=== PATIENT | female | born 1945 | race Caucasian/White ===

== ENCOUNTER 2019-04-19 14:05 | Inpatient (IN) ==
[2019-04-19] MEDS ORDERED: Hyoscyamine SL 0.125 MG TAB.SUBL SL PRN (15:45)
[2019-04-19] MEDS ORDERED: Naloxone 0.4 MG/ML INJ IVP PRN (15:45)
[2019-04-19] MEDS ORDERED: *HR* Belladonna Alkaloids/Opium 30 MG RECTAL SUPPOSITORY RC PRN (15:45)
[2019-04-19] MEDS ORDERED: *HR* Promethazine 25 MG/ML VIAL IVP PRN (15:45)
[2019-04-19] MEDS ORDERED: *HR* FentaNYL (PF) 100 MCG/2 ML VIAL IVP PRN (15:54)
[2019-04-19 16:20] LABS: Basophils % 0.1 %; Hematocrit 41.8 % (35.3-44.9); Hemoglobin 13.5 g/dL (11.5-15.4); Immature Granulocytes % 0.5 % (0-4); Lymphocytes # 2.2 K/mcL (0.6-4.6); Lymphocytes % 14.6 %; Mean Corpuscular HGB Conc 32.3 g/dL (31.6-35.5); Mean Corpuscular Hemoglobin 30.8 pg (28.0-33.3); Mean Corpuscular Volume 95.4 fL (83.0-100.0); Mean Platelet Volume 9.2 fL (9.4-12.4); Monocytes # 1.4 K/mcL (0.0-1.3); Monocytes % 9.2 %; Neutrophils # 11.2 K/mcL (1.6-8.9); Platelet Count 212 K/mcL (140-400); Red Blood Count 4.38 M/mcL (3.82-4.97); Red Cell Distribution Width 12.7 % (11.5-14.5); Segmented Neutrophils % 75.6 %; White Blood Count 14.9 K/mcL (4.3-11.1)
[2019-04-19] MEDS: cefTRIAXone 1,000 MG in Water for inj. (sterile) 10 ML IVP SCH (16:34)
[2019-04-19] MEDS: 0.9 % Sodium Chloride 1,000 ML IVC SCH (16:37)
[2019-04-19 16:40] LABS: Calcium 9.4 mg/dL (8.6-10.3); Potassium 3.8 mEq/L (3.5-5.1)
--- NOTE | 2019-04-19 18:26 | Urology History & Physical ---
Date of Encounter: 04/19/19 Time of Encounter: 18:24 Assessment and Plan (1) Ureteral stone with hydronephrosis Current Visit: Yes Status: Acute Patient has an 8 mm proximal ureteral calculi seen on outside CT scan and KUB. Due to her presentation with acute renal insufficiency and acute illness I am electing to proceed with a cystoscopy, left retrograde pyelogram, left ureteral stent placement. The right-sided stone does not appear obstructing and we will observe without a ureteral stent. Will likely require outpatient ESWL versus stone extraction. (2) Atrophic kidney Current Visit: Yes Status: Acute The right kidney is atrophic. This is contributing to the acute renal i nsufficiency she has an obstructing stone in her left kidney. (3) Acute renal insufficiency Current Visit: Yes Status: Acute Will monitor. Should improve with ureteral stent placement. No critical labs at this time. History of Present Illness Chief complaint: left flank pain HPI: Ms. Driver is a 73 year old female transferred from [facility] secondary t o a proximal ureteral stone. Patient has a history of stones. States she has had significant left flank pain. Acute renal insufficiency. No fever. Intractable nausea vomiting. CT scan from [facility] reveals a 8 mm proximal left ureteral stone with moderate hydronephrosis. She has a somewhat atrophic right kidney with a nonobstructing smaller stone. Past Med Surg Social Fam HX - Past Medical History Medical history: arthritis, COPD, hypertension, kidney stones, renal disease Additional medical history: stomach ulcer Psychiatric history: depression - Past Surgical History Surgical History: appendectomy, cholecystectomy Additional surgical history: Bilateral foot surgeries-orthopedic, kidney stone removed - Social History Smoking Status: Former smoker Smokeless Tobacco Status: No Alcohol use: none Drug use: none Medications and Allergies Acetaminophen [Tylenol] 1,000 mg PO Q6HR 04/19/19 [History] Cetirizine HCl [24Hour Allergy] 10 mg PO DAILY 04/19/19 [History] Cholecalciferol (Vitamin D3) [Vitamin D3] 5,000 cap PO DAILY 04/19/19 [History] Escitalopram [Lexapro] 10 mg PO DAILY 04/19/19 [History] Fluticasone Propionate Nasal [Flonase] 50 mcg NS BID PRN 04/19/19 [History] Furosemide [Lasix] 20 mg PO DAILY 04/19/19 [History] Omeprazole [PriLOSEC] 20 mg PO DAILY 04/19/19 [History] Propranolol 10 mg PO DAILY 04/19/19 [History] traZODone [TraZODone] 50 mg PO HS 04/19/19 [History] Allergy/AdvReac Type Severity Reaction Status Date / Time acetaminophen Allergy Intermediate Gastrointestinal Verified 04/19/19 15:14 [From Excedrin Extra Upset Strength] aspirin Allergy Intermediate Gastrointestinal Verified 04/19/19 15:14 [From Excedrin Extra Upset Strength] caffeine Allergy Intermediate Gastrointestinal Verified 04/19/19 15:14 [From Excedrin Extra Upset Strength] ondansetron [From Zofran] Allergy Intermediate Itching Verified 04/19/19 15:15 Review of Systems - Constitutional fatigue, no chills, no fever(s) - EENT Nose, mouth and throat: no dizziness - Cardiovascular no chest pain - Respiratory no cough - Gastrointestinal abdominal pain, nausea, vomiting - Genitourinary Genitourinary: flank pain - Musculoskeletal back pain - Integumentary no erythema - Neurological no confusion - Psychiatric no anxiety - Hematologic/Lymphatic no easy bleeding - Allergic/Immunologic no throat swelling Exam Initial Vital Signs Temp Pulse Resp BP Pulse Ox 98.6 F 54 18 107/62 94 04/19/19 15:46 04/19/19 15:46 04/19/19 15:46 04/19/19 15:46 04/19/19 15:46 - General physical appearance Present: well developed, no distress, no pain - Eyes Present: PERRL, conjunctiva is clear - ENT Present: normal nares, no congestion - Neck Present: no masses, no lymphadenopathy - Respiratory Present: normal respiratory effort - Cardiovascular Cardiovascular exam IM: RRR - Abdomen Abdomen: Present: soft. Absent: suprapubic tenderness - Integumentary Present: no rash, no growths, no abnormal pigmentation - Neurologic Present: normal coordination. Absent: disoriented, confused - Additional Findings No extremity edema Urology Results - Labs 04/19/19 16:09 04/19/19 16:09 Abnormal lab results WBC 14.9 K/mcL (4.3-11.1) H 04/19/19 16:09 MPV 9.2 fL (9.4-12.4) L 04/19/19 16:09 11.2 K/mcL (1.6-8.9) H 04/19/19 16:09 1.4 K/mcL (0.0-1.3) H 04/19/19 16:09 BUN 26 mg/dL (8-23) H 04/19/19 16:09 2.02 mg/dL (0.60-1.20) H 04/19/19 16:09 Est GFR ( Amer) 29 (> 60) L 04/19/19 16:09 Est GFR (Non-Af Amer) 24 (> 60) L 04/19/19 16:09 Glucose 135 mg/dL (70-105) H 04/19/19 16:09 Diabetes panel 04/19/19 Range/Units 16:09 Sodium 138 (136-145) mEq/L Potassium 3.8 (3.5-5.1) mEq/L Chloride 102 (98-107) mEq/L Carbon Dioxide 29 (23-29) mEq/L BUN 26 H (8-23) mg/dL Creatinine 2.02 H (0.60-1.20) mg/dL Glucose 135 H (70-105) mg/dL Calcium 9.4 (8.6-10.3) mg/dL Calcium panel 04/19/19 Range/Units 16:09 Calcium 9.4 (8.6-10.3) mg/dL Pituitary panel 04/19/19 Range/Units 16:09 Sodium 138 (136-145) mEq/L Potassium 3.8 (3.5-5.1) mEq/L Chloride 102 (98-107) mEq/L Carbon Dioxide 29 (23-29) mEq/L BUN 26 H (8-23) mg/dL Creatinine 2.02 H (0.60-1.20) mg/dL Glucose 135 H (70-105) mg/dL Calcium 9.4 (8.6-10.3) mg/dL Adrenal panel 04/19/19 Range/Units 16:09 Sodium 138 (136-145) mEq/L Potassium 3.8 (3.5-5.1) mEq/L Chloride 102 (98-107) mEq/L Carbon Dioxide 29 (23-29) mEq/L BUN 26 H (8-23) mg/dL Creatinine 2.02 H (0.60-1.20) mg/dL Glucose 135 H (70-105) mg/dL Calcium 9.4 (8.6-10.3) mg/dL All other labs normal.
[2019-04-20] MEDS: 0.9 % Sodium Chloride 1,000 ML IVC SCH ×2 (02:59→18:57)
[2019-04-20] MEDS ORDERED: Fluticasone Propionate Nasal 50 MCG/SPRAY BOTTLE NS PRN ×2 (07:03→18:15)
--- NOTE | 2019-04-20 09:06 | Urology Progress Note ---
<Ignacia Myaer N - Last Filed: 04/20/19 09:03> Date of Encounter: 04/20/19 Time of Encounter: 08:20 - Assessment and Plan (1) Acute renal insufficiency Current Visit: Yes Status: Acute Assessment and plan: Patient is a 73-year-old female who presents with acute renal insufficiency secondary to right atrophic kidney and obstructed left kidney by ureteral calculus. Patient will undergo left ureteral stent placement and continue with IV antibiotics. We will reevaluate patient's renal function postoperatively. (2) Atrophic kidney Current Visit: Yes Status: Acute Assessment and plan: Patient is a 79-year-old female who presents with a right atrophic kidney and nonobstructive right renal stone. We will plan to treat the obstructing left ureteral stone and discuss further management of atrophic kidney at outpatient follow-up. (3) Ureteral stone with hydronephrosis Current Visit: Yes Status: Acute Assessment and plan: Patient is a 73-year-old female who presents with an 8 mm left proximal ureteral stone, moderate hydronephrosis and urinary tract infection. Vital signs are currently stable, febrile to 100.0, and BP is 90/53. Patient is resting comfortably in no apparent distress. White blood cell count is elevated to 14.9. Patient is receiving IV Rocephin. We discussed surgical risks and benefits, patient verbalized understanding, and she signed a surgical consent. Patient will remain nothing by mouth, and she is prepared undergo a cystoscopy, left retrograde pyelogram and left ureteral stent placement later today with Dr. Pimentel. Progress Note Subjective: no new complaints Narrative: Patient seen and examined sitting upright in bed in no apparent distress. Patient reports pain is well-controlled at present. Patient reports she is voiding without difficulty. Patient denies any fever or chills. Objective Initial Vital Signs Temp Pulse Resp BP Pulse Ox 98.6 F 54 18 107/62 94 04/19/19 15:46 04/19/19 15:46 04/19/19 15:46 04/19/19 15:46 04/19/19 15:46 - General physical appearance Present: no distress, no pain - Respiratory Present: normal expansion, normal respiratory effort - Abdomen Present: soft, non tender. Absent: distended - Integumentary Present: no rash, no abnormal pigmentation - Musculoskeletal Present: normal posture - Psychiatric Present: oriented to time, oriented to person, oriented to place, speech is normal, memory intact - Labs 04/19/19 16:09 04/19/19 16:09 Diabetes panel 04/19/19 Range/Units 16:09 Sodium 138 (136-145) mEq/L Potassium 3.8 (3.5-5.1) mEq/L Chloride 102 (98-107) mEq/L Carbon Dioxide 29 (23-29) mEq/L BUN 26 H (8-23) mg/dL Creatinine 2.02 H (0.60-1.20) mg/dL Glucose 135 H (70-105) mg/dL Calcium 9.4 (8.6-10.3) mg/dL Calcium panel 04/19/19 Range/Units 16:09 Calcium 9.4 (8.6-10.3) mg/dL Pituitary panel 04/19/19 Range/Units 16:09 Sodium 138 (136-145) mEq/L Potassium 3.8 (3.5-5.1) mEq/L Chloride 102 (98-107) mEq/L Carbon Dioxide 29 (23-29) mEq/L BUN 26 H (8-23) mg/dL Creatinine 2.02 H (0.60-1.20) mg/dL Glucose 135 H (70-105) mg/dL Calcium 9.4 (8.6-10.3) mg/dL Adrenal panel 04/19/19 Range/Units 16:09 Sodium 138 (136-145) mEq/L Potassium 3.8 (3.5-5.1) mEq/L Chloride 102 (98-107) mEq/L Carbon Dioxide 29 (23-29) mEq/L BUN 26 H (8-23) mg/dL Creatinine 2.02 H (0.60-1.20) mg/dL Glucose 135 H (70-105) mg/dL Calcium 9.4 (8.6-10.3) mg/dL Consult Discharge Plan - Plan Referrals: Natasha Samuel, DIESEL POWERPLANT SUPERVISOR [Primary Care Provider] - <Caleb Pimentel - Last Filed: 04/22/19 06:34> Date of Encounter: 04/22/19 - Assessment and Plan (1) Ureteral stone with hydronephrosis Current Visit: Yes Status: Acute Assessment and plan: Patient seen and examined in conjunction with physician circulation assistant. Agree with plan to proceed with surgical intervention. (2) Atrophic kidney Current Visit: Yes Status: Chronic (3) Acute renal insufficiency Current Visit: Yes Status: Acute Objective Initial Vital Signs Temp Pulse Resp BP Pulse Ox 98.6 F 54 18 107/62 94 04/19/19 15:46 04/19/19 15:46 04/19/19 15:46 04/19/19 15:46 04/19/19 15:46 - Labs 04/22/19 02:56 04/22/19 02:56 Diabetes panel 04/21/19 04/22/19 Range/Units 07:02 02:56 Sodium 134 L 137 (136-145) mEq/L Potassium 4.0 4.2 (3.5-5.1) mEq/L Chloride 102 106 (98-107) mEq/L Carbon Dioxide 22 L 21 L (23-29) mEq/L BUN 39 H 42 H (8-23) mg/dL Creatinine 2.50 H 1.91 H (0.60-1.20) mg/dL Glucose 149 H 146 H (70-105) mg/dL Calcium 8.7 8.6 (8.6-10.3) mg/dL AST 36 (13-39) Units/L ALT 11 (7-52) Units/L Alkaline Phosphatase 88 (34-104) Units/L Albumin 3.2 L 2.9 L (3.5-5.7) g/dL Calcium panel 04/21/19 04/22/19 Range/Units 07:02 02:56 Calcium 8.7 8.6 (8.6-10.3) mg/dL Phosphorus 2.9 (2.7-4.5) mg/dL Albumin 3.2 L 2.9 L (3.5-5.7) g/dL Pituitary panel 04/21/19 04/22/19 Range/Units 07:02 02:56 Sodium 134 L 137 (136-145) mEq/L Potassium 4.0 4.2 (3.5-5.1) mEq/L Chloride 102 106 (98-107) mEq/L Carbon Dioxide 22 L 21 L (23-29) mEq/L BUN 39 H 42 H (8-23) mg/dL Creatinine 2.50 H 1.91 H (0.60-1.20) mg/dL Glucose 149 H 146 H (70-105) mg/dL Calcium 8.7 8.6 (8.6-10.3) mg/dL Adrenal panel 04/21/19 04/22/19 Range/Units 07:02 02:56 Sodium 134 L 137 (136-145) mEq/L Potassium 4.0 4.2 (3.5-5.1) mEq/L Chloride 102 106 (98-107) mEq/L Carbon Dioxide 22 L 21 L (23-29) mEq/L BUN 39 H 42 H (8-23) mg/dL Creatinine 2.50 H 1.91 H (0.60-1.20) mg/dL Glucose 149 H 146 H (70-105) mg/dL Calcium 8.7 8.6 (8.6-10.3) mg/dL Total Bilirubin 0.6 (0.3-1.0) mg/dL AST 36 (13-39) Units/L ALT 11 (7-52) Units/L Alkaline Phosphatase 88 (34-104) Units/L Albumin 3.2 L 2.9 L (3.5-5.7) g/dL
[2019-04-20] MEDS ORDERED: Isovue-300 50 ML VIAL ONE (15:30)
--- NOTE | 2019-04-20 15:38 | Anesthesia Evaluation PreOp ---
Date of Encounter: 04/20/19 Time of Encounter: 15:34 - Past History Planned Operation: Cystoscopy, Left Ureteral Stent Placement Cardiac History: HTN Pulmonary History: Former smoker, COPD MIMEOGRAPH OPERATOR History: Denies Any Significant HX Other Medical History: Renal (kidney stones, renal insufficiency), GERD, Other (depression) Anesthesia History: No Prior Anesthetic Complications, Past Anesthesia Alcohol Use: none Drug use: none Medications and Allergies Acetaminophen [Tylenol] 1,000 mg PO Q6HR PRN 04/19/19 [History] Cetirizine HCl [24Hour Allergy] 10 mg PO DAILY PRN 04/19/19 [History] Escitalopram [Lexapro] 10 mg PO DAILY 04/19/19 [History] Omeprazole [PriLOSEC] 20 mg PO DAILY 04/19/19 [History] Propranolol [Inderal] 10 mg PO BID 04/19/19 [History] traZODone [TraZODone] 50 mg PO HS 04/19/19 [History] Cholecalciferol (Vitamin D3) [Vitamin D] 5,000 unit PO DAILY 04/20/19 [History] Furosemide [Lasix] 40 mg PO DAILY 04/20/19 [History] Allergy/AdvReac Type Severity Reaction Status Date / Time acetaminophen Allergy Intermediate Gastrointestinal Verified 04/20/19 07:44 [From Excedrin Extra Upset Strength] aspirin Allergy Intermediate Gastrointestinal Verified 04/20/19 07:44 [From Excedrin Extra Upset Strength] caffeine Allergy Intermediate Gastrointestinal Verified 04/20/19 07:44 [From Excedrin Extra Upset Strength] ondansetron [From Zofran] Allergy Intermediate Itching Verified 04/20/19 07:44 - Meds/Allergy Pre-op Review Medications Reviewed: Yes Allergies Reviewed: Yes Beta Blockers on Current Med List: Yes Anesthesia Results - Labs 04/19/19 16:09 04/19/19 16:09 - Imaging EKG: report reviewed (04/20/2019 sinus rhythm, low QRS voltage in precordial leads, IRBBB) Anesthesia Exam Vital Signs/O2 Sat/Glucose, Most Recent Temp Pulse Resp BP Pulse Ox 99.5 F 90 13 96/62 95 04/20/19 12:40 04/20/19 12:40 04/20/19 12:40 04/20/19 12:40 04/20/19 12:40 Blood Glucose* 100 Height: 5'3'/1.6m Weight: 192 lbs/87 kg NPO (# of Hours): 8 Pain Scale: 0 Pain Scale Used: Numeric (1 - 10) - HEENT Pupil (Motor): EOMI Mallampati: II Teeth: Edentulous Oral Opening: Greater than 3 - MIMEOGRAPH OPERATOR LOC: Oriented MIMEOGRAPH OPERATOR Motor: Normal RUE, Normal LUE, Normal RLE, Normal LLE, Normal Face MIMEOGRAPH OPERATOR Sensory: Normal: RUE, LUE, RLE, LLE, Face - Cardiac Rhythm: Regular Murmur: None - Pulmonary Breath Sounds: bilateral Clear Respiratory Effort: Symmetrical Anesthesia Assess/Plan ASA Score: 3 Level of consciousness: Cooperative, Oriented, Tranquil Anesthetic Plan: General Monitoring Plan: Standard Monitors Recovery Plan: PACU
[2019-04-20] MEDS ORDERED: *HR* FentaNYL (PF) 100 MCG/2 ML VIAL ONE (16:36)
[2019-04-20] MEDS ORDERED: *HR* Propofol 200 MG/20 ML VIAL IVP ONE (16:37)
[2019-04-20] MEDS ORDERED: Ondansetron 4 MG/2 ML VIAL ONE (16:37)
[2019-04-20] MEDS ORDERED: Dexamethasone 4 MG/ML VIAL ONE (16:37)
[2019-04-20] MEDS ORDERED: Lidocaine -MPF 2% 2 ML VIAL ONE (16:37)
[2019-04-20] MEDS ORDERED: Morphine Sulfate 2 MG/ML SYRINGE IVP PRN (16:41)
[2019-04-20] MEDS: cefTRIAXone 1,000 MG in Water for inj. (sterile) 10 ML IVP SCH (16:45)
[2019-04-20] MEDS ORDERED: *HR* PHENYLEPHRINE 1,000 MCG/10 ML SYRINGE IVP ONE (16:58)
--- NOTE | 2019-04-20 17:40 | Anesthesia Evaluation Post Op ---
Date of Encounter: 04/20/19 Time of Encounter: 17:39 - Vital Signs Vital Signs: Vital Signs/O2 Sat, Most Current Temp Pulse Resp BP Pulse Ox 97.1 F L 77 16 98/52 97 04/20/19 17:17 04/20/19 17:27 04/20/19 17:27 04/20/19 17:27 04/20/19 17:27 - Lungs Lungs: Clear Ascult./Percussion - Airway Airway: Non-obstructed - Cardiovascular Regular Rate - Mental Status Mental Status: Alert & Oriented, Answers Appropriately - Pain Pain Scale: 0 Pain Scale used: Numeric (1 - 10) - Nausea Vomiting Nausea Vomiting: Not Present - Hydration Hydration: Ice chips, Delatorre catheter - Discharge PostOp Status: Transfer Patient to floor
--- NOTE | 2019-04-20 17:40 | Operative Note ---
Date of procedure: 04/20/19 Pre-op diagnosis: left ureteral stone with hydronephrosis Post-op diagnosis: same Procedure: cystoscopy with left retrograde pyelogram and JJ stent placement Anesthesia: GETA Surgeon: Caleb Pimentel Was there an food and beverage assistant present: No Estimated blood loss (cc): 0 Specimen: none Condition: stable Disposition: PACU Procedure in Detail: PROCEDURE IN DETAIL: Patient was taken back to the operating room, positioned supine on the operating table. Anesthesia was applied without complication. They were moved into dorsal lithotomy. Careful attention was maintained to cushion all pressure points for patient's safety. They were prepped and draped in sterile fashion. Time-out was performed with the proper patient and procedure. A 21-Mexican rigid cystoscope was inserted into the bladder without difficulty. Systematic examination of bladder revealed significant cystitis cystica. The left ureteral orifice was cannulated using a 5-Mexican ureteral Catheter and a retrograde pyelogram was performed using Isovue. A filling defect was identified which corresponded to the stone. At that point, a zip wire was placed through the 5-Mexican and confirmed in the renal pelvis with fluoroscopy. I then placed a 4.8 x 26 ureteral stent. There was significant opaque. Fluid drained from the left ureteral orifice. No dangle string was left. 16-Mexican Delatorre catheter was placed at the end of the procedure
[2019-04-20] MEDS ORDERED: Hyoscyamine SL 0.125 MG TAB.SUBL SL PRN (18:15)
[2019-04-20] MEDS ORDERED: *HR* FentaNYL (PF) 100 MCG/2 ML VIAL IVP PRN (18:15)
[2019-04-20] MEDS ORDERED: Naloxone 0.4 MG/ML INJ IVP PRN (18:15)
[2019-04-20] MEDS ORDERED: *HR* Promethazine 25 MG/ML VIAL IVP PRN (18:15)
[2019-04-20] MEDS ORDERED: *HR* Belladonna Alkaloids/Opium 30 MG RECTAL SUPPOSITORY RC PRN (18:15)
[2019-04-20] MEDS: traZODone 50 MG TABLET PO SCH (20:50)
[2019-04-20] MEDS ORDERED: traZODone 50 MG TABLET PO SCH (21:00)
--- NOTE | 2019-04-21 03:14 | Internal Medicine Consult Note ---
Date of Encounter: 04/20/19 Time of Encounter: 21:05 - Assessment and Plan (1) Acute renal insufficiency Current Visit: Yes Status: Acute Assessment and plan: 1. Monitor renal function and I/O. 2. Consult nephrology, especially given her CKD and h/o atrophic right kidney. 3. Continue IVF. (2) Atrophic kidney Current Visit: Yes Status: Chronic Assessment and plan: 1. Patient needs long-term outpatient nephrology follow up. (3) Ureteral stone with hydronephrosis Current Visit: Yes Status: Acute Assessment and plan: 1. Per urology. 2. Care as above. (4) DVT prophylaxis Current Visit: Yes Status: Acute Assessment and plan: 1. EPCD's. Internal Medicine - CN: HPI - Data of Consult Requesting Physician: Caleb Pimentel - Consult Narrative Reason for consult: medical management/assistance History of present illness: Ms. Driver is a 73 year old female who was status post intervention and stent placement for obstructing renal lithiasis. [facility] hospitalist group was consulted for help with medical management as was reported to me from my daytime admitting partner. Dr. Pimentel contacted her requesting assistance from hospitalist group for ongoing care and needs. Upon my assessment of the patient, she is sitting in bed eating dinner and has no complaints. She is very hard of hearing but communicates very well otherwise. She denies any chest pain, shortness of breath, nausea, vomiting, or diarrhea. She has minimal dysuria now. I reviewed her history and note that she has an atrophic right kidney and appears to have chronic kidney disease. She does not follow with nephrology and has not seen a tip bander since childhood. She denies any difficulty breathing, COPD, and/or cardiac issues. Given her history of atrophic right kidney, chronic kidney disease, and now with obstructive uropathy of the left kidney, I recommend close follow-up with nephrology and establishment with nephrology. I am therefore taking liberty in consulting nephrology as she will likely need close follow-up in the near future. Past Med Surg Social Fam HX - Past Medical History Attestation: Yes The following information was validated with the patient. Source: patient, old records reviewed Medical history: arthritis, COPD, hypertension, kidney stones, renal disease (a trophic right kidney/CKD) Additional medical history: stomach ulcer Psychiatric history: depression - Past Surgical History Surgical History: appendectomy, cholecystectomy Additional surgical history: Bilateral foot surgeries-orthopedic, kidney stone removed - Social History Smoking Status: Former smoker Smokeless Tobacco Status: No Alcohol use: none Drug use: none Current living situation: Home, With Family Activity Level: Independent ambulation Recent Out of Country Travel Within the Last 8 Weeks: No - Additional Family History Additional family history: No FH kidney disease per patient - Constitutional Constitutional: chills, fever(s), no night sweats - EENT Eyes: no blurry vision, no change in vision Ears: no ear pain, no tinnitus Nose, mouth and throat: no nasal congestion, no sore throat - Cardiovascular Cardiovascular ROS IM: no chest pain, no dyspnea - Respiratory Respiratory: no cough, no dyspnea, no chest congestion - Gastrointestinal Gastrointestinal: no diarrhea, no hematemesis, no hematochezia, no nausea, no vomiting - Genitourinary Genitourinary: dysuria, flank pain - Musculoskeletal Musculoskeletal ROS IM: no arthralgias, no back pain - Integumentary Integumentary IM: no rash - Neurological Neurological ROS: no dizziness, no focal weakness, no frequent falls, no headache(s) - Psychiatric Psychiatric: no anxiety, no depression - Endocrine Endocrine IM: no polydipsia, no polyuria - Hematologic/Lymphatic Hematologic/Lymphatic: no easy bruising - Allergic/Immunologic Allergic/Immunologic: no wheezing Internal Medicine - CN: Meds Acetaminophen [Tylenol] 1,000 mg PO Q6HR PRN 04/19/19 [History] Cetirizine HCl [24Hour Allergy] 10 mg PO DAILY PRN 04/19/19 [History] Escitalopram [Lexapro] 10 mg PO DAILY 04/19/19 [History] Omeprazole [PriLOSEC] 20 mg PO DAILY 04/19/19 [History] Propranolol [Inderal] 10 mg PO BID 04/19/19 [History] traZODone [TraZODone] 50 mg PO HS 04/19/19 [History] Cholecalciferol (Vitamin D3) [Vitamin D] 5,000 unit PO DAILY 04/20/19 [History] Furosemide [Lasix] 40 mg PO DAILY 04/20/19 [History] Allergy/AdvReac Type Severity Reaction Status Date / Time acetaminophen Allergy Intermediate Gastrointestinal Verified 04/20/19 07:44 [From Excedrin Extra Upset Strength] aspirin Allergy Intermediate Gastrointestinal Verified 04/20/19 07:44 [From Excedrin Extra Upset Strength] caffeine Allergy Intermediate Gastrointestinal Verified 04/20/19 07:44 [From Excedrin Extra Upset Strength] ondansetron [From Zofran] Allergy Intermediate Itching Verified 04/20/19 07:44 Hospitalist - CN: Exam - Constitutional Vitals: Temp Pulse Resp BP Pulse Ox 98.1 F 55 14 91/55 93 04/20/19 23:50 04/20/19 23:50 04/20/19 23:50 04/20/19 23:50 04/20/19 23:50 General appearance IM: Present: cooperative, A&O X 3, pleasant, answers qu estions appropriately Exam: hard of hearing - Head Head exam: Present: atraumatic, normal inspection - Eye Eye exam: Present: EOMI, PERRL. Absent: scleral icterus - ENT ENT exam: Present: normal exam - Neck Neck exam general surgery: Present: full ROM, supple, trachea midline. Absent: tenderness, nuchal rigidity, thyromegaly - Respiratory Respiratory exam: Present: CTAB. Absent: chest wall tenderness, rales, rhonchi, wheezes - Cardiovascular Cardiovascular exam IM: Present: RRR, +S1, +S2. Absent: diastolic murmur, systolic murmur - GI/Abdominal GI/Abdominal exam IM: Present: normal bowel sounds, soft. Absent: hepatomegaly, mass, splenomegaly, tenderness - Extremities Exam Extremities exam IM: Present: full ROM, normal capillary refill, warm, radial pulses palpable and symmetrical. Absent: calf tenderness, joint swelling, pedal edema, tenderness - Back Exam Back exam: Absent: CVA tenderness (L), CVA tenderness (R) - Neurological Exam Neurological exam: Present: alert, CN II-XII intact, oriented X3, no focal deficits, strengths equal and symetr throughout - Psychiatric Psychiatric exam: Present: normal affect, normal mood - Skin Skin exam IM: Present: dry, intact, warm Internal Medicine - CN: Reslt - Labs CBC & Chem 7: 04/19/19 16:09 04/19/19 16:09 - Impressions Impressions Retrograde Pyelogram 04/20/19 16:55 IMPRESSION: Intraprocedural fluoroscopic spot images as above. See separate procedure report for more information. D/ / 04/20/2019 17:36:12 Myron Caballero MD / earnold Interpreting Provider: Myron Caballero MD Consult Discharge Plan - Plan Referrals: Natasha Samuel, SCREEN TENDER [Primary Care Provider] -
[2019-04-21] MEDS: 0.9 % Sodium Chloride 1,000 ML IVC SCH ×3 (04:44→16:14)
[2019-04-21 08:03] LABS: Basophils % 0.1 %; Hematocrit 37.8 % (35.3-44.9); Hemoglobin 12.1 g/dL (11.5-15.4); Immature Granulocytes % 1.1 % (0-4); Lymphocytes # 1.3 K/mcL (0.6-4.6); Mean Corpuscular Hemoglobin 30.6 pg (28.0-33.3); Mean Corpuscular Volume 95.7 fL (83.0-100.0); Mean Platelet Volume 9.5 fL (9.4-12.4); Monocytes # 0.4 K/mcL (0.0-1.3); Monocytes % 3.8 %; Neutrophils # 8.5 K/mcL (1.6-8.9); Platelet Count 171 K/mcL (140-400); Red Blood Count 3.95 M/mcL (3.82-4.97); Red Cell Distribution Width 13.1 % (11.5-14.5); White Blood Count 10.3 K/mcL (4.3-11.1)
[2019-04-21 08:16] LABS: Albumin 3.2 g/dL (3.5-5.7); Bilirubin,Total 0.6 mg/dL (0.3-1.0); Calcium 8.7 mg/dL (8.6-10.3); Globulin 3.1 g/dL (2.4-3.5); Total Protein 6.3 g/dL (6.4-8.9)
--- NOTE | 2019-04-21 08:25 | Urology Progress Note ---
<Ignacia Mayer N - Last Filed: 04/21/19 08:22> Date of Encounter: 04/21/19 Time of Encounter: 08:00 - Assessment and Plan (1) Acute renal insufficiency Current Visit: Yes Status: Acute (2) Atrophic kidney Current Visit: Yes Status: Chronic (3) Ureteral stone with hydronephrosis Current Visit: Yes Status: Acute Assessment and plan: Patient is a 79-year-old female who presents one day status post cystoscopy, left retropyelogram and left ureteral stent placement. Patient appears to be improved clinically. Vital signs are stable and afebrile. White blood cell count improved to 10.3. Renal function slightly worsened with a serum creatinine of 2.50. Nephrology has been consulted, and renal ultrasound is pending. Urine culture is pending, and patient is receiving IV Rocephin. Plan to continue to follow until culture results are finalized. Will d/c justin catheter once patient regains mobility and renal function improves. Progress Note Subjective: no new complaints, feels better Narrative: POD #1. Patient seen and examined sitting upright in bed in apparent distress. Patient reports she is tolerating normal diet without nausea or vomiting. Patient states she is feeling much better and has been up and out of bed this morning. Justin catheter is indwelling and draining transparent, clear yellow urine into bedside bag. Patient denies fever, chills, flank pain, chest pain or dyspnea. Objective Initial Vital Signs Temp Pulse Resp BP Pulse Ox 98.6 F 54 18 107/62 94 04/19/19 15:46 04/19/19 15:46 04/19/19 15:46 04/19/19 15:46 04/19/19 15:46 - General physical appearance Present: well developed, no distress, no pain - Respiratory Present: normal expansion, normal respiratory effort - Abdomen Present: soft, non tender. Absent: distended - Genitourinary Urine Appearance: Present: Clear - Integumentary Present: no rash, no abnormal pigmentation - Musculoskeletal Present: normal posture - Psychiatric Present: oriented to time, oriented to person, oriented to place, speech is normal, memory intact - Labs 04/21/19 07:02 04/21/19 07:02 Diabetes panel 04/21/19 Range/Units 07:02 Sodium 134 L (136-145) mEq/L Potassium 4.0 (3.5-5.1) mEq/L Chloride 102 (98-107) mEq/L Carbon Dioxide 22 L (23-29) mEq/L BUN 39 H (8-23) mg/dL Creatinine 2.50 H (0.60-1.20) mg/dL Glucose 149 H (70-105) mg/dL Calcium 8.7 (8.6-10.3) mg/dL AST 36 (13-39) Units/L ALT 11 (7-52) Units/L Alkaline Phosphatase 88 (34-104) Units/L Albumin 3.2 L (3.5-5.7) g/dL Calcium panel 04/21/19 Range/Units 07:02 Calcium 8.7 (8.6-10.3) mg/dL Albumin 3.2 L (3.5-5.7) g/dL Pituitary panel 04/21/19 Range/Units 07:02 Sodium 134 L (136-145) mEq/L Potassium 4.0 (3.5-5.1) mEq/L Chloride 102 (98-107) mEq/L Carbon Dioxide 22 L (23-29) mEq/L BUN 39 H (8-23) mg/dL Creatinine 2.50 H (0.60-1.20) mg/dL Glucose 149 H (70-105) mg/dL Calcium 8.7 (8.6-10.3) mg/dL Adrenal panel 04/21/19 Range/Units 07:02 Sodium 134 L (136-145) mEq/L Potassium 4.0 (3.5-5.1) mEq/L Chloride 102 (98-107) mEq/L Carbon Dioxide 22 L (23-29) mEq/L BUN 39 H (8-23) mg/dL Creatinine 2.50 H (0.60-1.20) mg/dL Glucose 149 H (70-105) mg/dL Calcium 8.7 (8.6-10.3) mg/dL Total Bilirubin 0.6 (0.3-1.0) mg/dL AST 36 (13-39) Units/L ALT 11 (7-52) Units/L Alkaline Phosphatase 88 (34-104) Units/L Albumin 3.2 L (3.5-5.7) g/dL Consult Discharge Plan - Plan Referrals: Natasha Samuel, STEEL TURNER [Primary Care Provider] - <Caleb Pimentel - Last Filed: 04/22/19 06:33> Date of Encounter: 04/22/19 - Assessment and Plan (1) Ureteral stone with hydronephrosis Current Visit: Yes Status: Acute Assessment and plan: Patient seen and examined in conjunction with physician speech language pathologist assistant. Patient feels better after stent placement. Creatinine has increased from 2-2.5. Nephrology consult pending. Continue Justin catheter for now. Outside urine culture reveals enterococcus and antibiotics changed to renal dosed Levaquin (2) Atrophic kidney Current Visit: Yes Status: Chronic (3) Acute renal insufficiency Current Visit: Yes Status: Acute Objective Initial Vital Signs Temp Pulse Resp BP Pulse Ox 98.6 F 54 18 107/62 94 04/19/19 15:46 04/19/19 15:46 04/19/19 15:46 04/19/19 15:46 04/19/19 15:46 - Labs 04/22/19 02:56 04/22/19 02:56 Diabetes panel 04/21/19 04/22/19 Range/Units 07:02 02:56 Sodium 134 L 137 (136-145) mEq/L Potassium 4.0 4.2 (3.5-5.1) mEq/L Chloride 102 106 (98-107) mEq/L Carbon Dioxide 22 L 21 L (23-29) mEq/L BUN 39 H 42 H (8-23) mg/dL Creatinine 2.50 H 1.91 H (0.60-1.20) mg/dL Glucose 149 H 146 H (70-105) mg/dL Calcium 8.7 8.6 (8.6-10.3) mg/dL AST 36 (13-39) Units/L ALT 11 (7-52) Units/L Alkaline Phosphatase 88 (34-104) Units/L Albumin 3.2 L 2.9 L (3.5-5.7) g/dL Calcium panel 04/21/19 04/22/19 Range/Units 07:02 02:56 Calcium 8.7 8.6 (8.6-10.3) mg/dL Phosphorus 2.9 (2.7-4.5) mg/dL Albumin 3.2 L 2.9 L (3.5-5.7) g/dL Pituitary panel 04/21/19 04/22/19 Range/Units 07:02 02:56 Sodium 134 L 137 (136-145) mEq/L Potassium 4.0 4.2 (3.5-5.1) mEq/L Chloride 102 106 (98-107) mEq/L Carbon Dioxide 22 L 21 L (23-29) mEq/L BUN 39 H 42 H (8-23) mg/dL Creatinine 2.50 H 1.91 H (0.60-1.20) mg/dL Glucose 149 H 146 H (70-105) mg/dL Calcium 8.7 8.6 (8.6-10.3) mg/dL Adrenal panel 04/21/19 04/22/19 Range/Units 07:02 02:56 Sodium 134 L 137 (136-145) mEq/L Potassium 4.0 4.2 (3.5-5.1) mEq/L Chloride 102 106 (98-107) mEq/L Carbon Dioxide 22 L 21 L (23-29) mEq/L BUN 39 H 42 H (8-23) mg/dL Creatinine 2.50 H 1.91 H (0.60-1.20) mg/dL Glucose 149 H 146 H (70-105) mg/dL Calcium 8.7 8.6 (8.6-10.3) mg/dL Total Bilirubin 0.6 (0.3-1.0) mg/dL AST 36 (13-39) Units/L ALT 11 (7-52) Units/L Alkaline Phosphatase 88 (34-104) Units/L Albumin 3.2 L 2.9 L (3.5-5.7) g/dL
--- NOTE | 2019-04-21 14:55 | Internal Med Progress Note ---
Hospitalist Progress Note - Encounter Date of Encounter: 04/21/19 Time of Encounter: 14:53 - Subjective Interval History: Pt denies fever, chills, N/V or diarrhea. She denies chest pain or SOB. She denies abdominal pain. - Exam Vitals: Temp Pulse Resp BP Pulse Ox 97.6 F 50 17 91/61 95 04/21/19 08:03 04/21/19 08:03 04/21/19 08:03 04/21/19 08:03 04/21/19 08:03 Exam: General appearance IM: Present: cooperative, A&O X 3, pleasant, answers questions appropriately Exam: hard of hearing Head exam: Present: atraumatic, normal inspection Eye exam: Present: EOMI, PERRL. Absent: scleral icterus ENT exam: Present: normal exam Neck exam general surgery: Present: full ROM, supple, trachea midline. Absent: tenderness, nuchal rigidity, thyromegaly Respiratory exam: Present: CTAB. Absent: chest wall tenderness, rales, rhonchi, wheezes Cardiovascular exam IM: Present: RRR, +S1, +S2. Absent: diastolic murmur, systolic murmur GI/Abdominal exam IM: Present: normal bowel sounds, soft. Absent: hepatomegaly, mass, splenomegaly, tenderness Extremities exam IM: Present: full ROM, normal capillary refill, warm, radial pulses palpable and symmetrical. Absent: calf tenderness, joint swelling, pedal edema, tenderness Back exam: Absent: CVA tenderness (L), CVA tenderness (R) Neurological exam: Present: alert, CN II-XII intact, oriented X3, no focal deficits, strengths equal and symetr throughout Psychiatric exam: Present: normal affect, normal mood Skin exam IM: Present: dry, intact, warm - Assessment and Plan (1) Ureteral stone with hydronephrosis Current Visit: Yes Status: Acute Assessment and Plan: 1. Per urology. s/p stent placement 04/20/19 2. Care as above. (2) Atrophic kidney Current Visit: Yes Status: Chronic Assessment and Plan: Due to bump in renal function today, nephrology consulted for assistance. Patient needs long-term outpatient nephrology follow up. (3) Acute renal insufficiency Current Visit: Yes Status: Acute Assessment and Plan: 1. Monitoring renal function and I/O. 2. Consulted nephrology, especially given her CKD and h/o atrophic right kidney. 3. On IVF @ 100 ml/hr. DVT Prophylaxis: EPCD's. - Summary of Assessment and Plan Summary of Assessment and Plan: History of present illness: Dr. Yen Ms. Driver is a 73 year old female who was status post intervention and stent placement for obstructing renal lithiasis. [place] hospitalist group was consulted for help with medical management as was reported to me from my daytime admitting partner. Dr. Pimentel contacted her requesting assistance from hospitalist group for ongoing care and needs. Upon my assessment of the patient, she is sitting in bed eating dinner and has no complaints. She is very hard of hearing but communicates very well otherwise. She denies any chest pain, shortness of breath, nausea, vomiting, or diarrhea. She has minimal dysuria now. I reviewed her history and note that she has an atrophic right kidney and appears to have chronic kidney disease. She does not follow with nephrology and has not seen a car dumper since childhood. She denies any difficulty breathing, COPD, and/or cardiac issues. Given her history of atrophic right kidney, chronic kidney disease, and now with obstructive uropathy of the left kidney, I recommend close follow-up with nephrology and establishment with nephrology. I am therefore taking liberty in consulting nephrology as she will likely need close follow-up in the near future. - Time Spent with Patient Total time spent is greater than 50% in coordination of care (as documented) at patient's floor/unit and/or counseling patient: less than 15 minutes Plan of Care Discussed with: patient Internal Medicine: Result - Labs CBC & Chem 7: 04/21/19 07:02 04/21/19 07:02 Labs: Short CBC 04/21/19 Range/Units 07:02 WBC 10.3 (4.3-11.1) K/mcL Hgb 12.1 (11.5-15.4) g/dL Hct 37.8 (35.3-44.9) % Plt Count 171 (140-400) K/mcL Neutrophils # 8.5 (1.6-8.9) K/mcL BMP 04/21/19 07:02 Sodium 134 L Potassium 4.0 Chloride 102 Carbon Dioxide 22 L BUN 39 H Creatinine 2.50 H Glucose 149 H Calcium 8.7 Liver Function 04/21/19 Range/Units 07:02 Total Bilirubin 0.6 (0.3-1.0) mg/dL AST 36 (13-39) Units/L ALT 11 (7-52) Units/L Alkaline Phosphatase 88 (34-104) Units/L Albumin 3.2 L (3.5-5.7) g/dL - Impressions Impressions Retrograde Pyelogram 04/20/19 16:55 IMPRESSION: Intraprocedural fluoroscopic spot images as above. See separate procedure report for more information. D/ / 04/20/2019 17:36:12 Myron Caballero MD / ame Interpreting Provider: Myron Caballero MD Consult Discharge Plan - Plan Referrals: Natasha Samuel, PIPE CREW FOREMAN [Primary Care Provider] -
[2019-04-21] MEDS ORDERED: levoFLOXacin 500 MG/100 ML 500 MG/100 ML BAG IVPB SCH (15:00)
--- NOTE | 2019-04-21 16:03 | Electrocardiograph Report ---
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
[2019-04-21] MEDS ORDERED: cefTRIAXone 1,000 MG in Water for inj. (sterile) 10 ML IVP SCH (17:00)
--- NOTE | 2019-04-21 19:45 | Nephrology Consult Note ---
Date of Encounter: 04/21/19 Time of Encounter: 14:00 Assessment and Plan (1) KARLI (acute kidney injury) Current Visit: Yes Status: Acute Elevated SCr in the setting obstruction L kidney with ureteral stone s/p stent and an atrophic R kidney, likely sepsis Agree with abx per primary Agree with US of rc diggs ordered Continue IVF already started Avoid nephrotoxins if possible Will check urine studies (2) Ureteral stone with hydronephrosis Current Visit: Yes Status: Acute Per urology (3) Atrophic kidney Current Visit: Yes Status: Chronic (4) Stage 3 chronic kidney disease Current Visit: Yes Status: Acute Will check PTH, Vitamin D levels Will check urine for proteinuria Will check SPEP and UPEP Will check VIN and complements History of Present Illness - Reason for Consult Consult date: 04/21/19 Acute Kidney Injury Requesting physician: Donita Maza - History of Present Illness 73 y o female with PMH of HTN, OA, COPd transferred from [facility] she presented with L flank pain with CT and KUB showing 8mm prox. ureteral stone on lfet kidney with R kidney noted atrophic. Pt underwent cystoscopy with retrog rade pyelogram and left ureteral stent placement yesterday. Renal consulted for elevated SCr worse today at 2.5 from 2.02. Baseline SCr around 1.4 to 1.7. Pt reports any episode of KARLI in the past but denies chronic issue and does not follow with nephrology. Past Med Surg Social Fam HX - Past Medical History Medical history: arthritis, COPD, hypertension, kidney stones, renal disease (atrophic right kidney/CKD) Additional medical history: stomach ulcer Psychiatric history: depression - Past Surgical History Surgical History: appendectomy, cholecystectomy Additional surgical history: Bilateral foot surgeries-orthopedic, kidney stone removed - Social History Smoking Status: Former smoker Smokeless Tobacco Status: No Alcohol use: none Drug use: none Medications and Allergies Acetaminophen [Tylenol] 1,000 mg PO Q6HR PRN 04/19/19 [History] Cetirizine HCl [24Hour Allergy] 10 mg PO DAILY PRN 04/19/19 [History] Escitalopram [Lexapro] 10 mg PO DAILY 04/19/19 [History] Omeprazole [PriLOSEC] 20 mg PO DAILY 04/19/19 [History] Propranolol [Inderal] 10 mg PO BID 04/19/19 [History] traZODone [TraZODone] 50 mg PO HS 04/19/19 [History] Cholecalciferol (Vitamin D3) [Vitamin D] 5,000 unit PO DAILY 04/20/19 [History] Furosemide [Lasix] 40 mg PO DAILY 04/20/19 [History] Allergy/AdvReac Type Severity Reaction Status Date / Time acetaminophen Allergy Intermediate Gastrointestinal Verified 04/20/19 07:44 [From Excedrin Extra Upset Strength] aspirin Allergy Intermediate Gastrointestinal Verified 04/20/19 07:44 [From Excedrin Extra Upset Strength] caffeine Allergy Intermediate Gastrointestinal Verified 04/20/19 07:44 [From Excedrin Extra Upset Strength] ondansetron [From Zofran] Allergy Intermediate Itching Verified 04/20/19 07:44 Exam - Vital Signs Vital signs: Initial Vital Signs Temp Pulse Resp BP Pulse Ox 98.6 F 54 18 107/62 94 04/19/19 15:46 04/19/19 15:46 04/19/19 15:46 04/19/19 15:46 04/19/19 15:46 Vital Signs - Last 8 Hours Temp Pulse Resp BP Pulse Ox 04/21/19 18:53 97.4 F L 58 17 108/70 98 Intake and Output 04/21/19 04/21/19 04/21/19 07:59 15:59 23:59 Intake Total 2200 / 3440 1240 / 3440 Output Total 500 / 2100 1600 / 2100 Balance 1700 / 1340 1240 / 1340 -1600 / 1340 Intake: IV Fluids 2000 / 3000 1000 / 3000 0.9 % Sodium Chloride 1,000 ML 2000 / 3000 1000 / 3000 @ 100 mls/hr IVC .Q10H JERRY Rx#: [id number] Oral 200 / 440 240 / 440 Output: Catheter 500 / 2100 1600 / 2100 Other: Meal Breakfast Percent of Meal Consumed 80% # Bowel Movements 0 Weight 87.9 kg Patient Weight 04/21/19 23:59 Weight 87.9 kg Results - Lab Results 04/21/19 07:02 04/21/19 07:02 Most recent lab results 04/21/19 07:02 Calcium 8.7 Consult Discharge Plan - Plan Referrals: Natasha Samuel, PRODUCE BUYER [Primary Care Provider] -
[2019-04-21] MEDS: traZODone 50 MG TABLET PO SCH (20:28)
[2019-04-22 01:25] LABS: Protein/Creatinine Ratio,Urine 1.75 mg/mg (0.00-0.20)
[2019-04-22 01:26] LABS: Sodium, Urine 24.4 mEq/L
[2019-04-22 02:39] LABS: Clarity,Urine Cloudy (Clear); Color,Urine Yellow (Yellow)
[2019-04-22 02:40] LABS: Bilirubin,Urine Negative (Negative); Blood,Urine Large (Negative); Glucose,Urine (UA) Normal (Normal); Ketones,Urine Negative (Negative); Leukocyte Esterase,Urine Large (Negative); Nitrite,Urine Negative (Negative); Protein,Urine 30 mg/dL (Neg-Trace); Specific Gravity,Urine < 1.005 (1.010-1.025); Urobilinogen,Urine Normal (Normal)
[2019-04-22 02:41] LABS: RBC,Urine 0-3 per hpf (0-3)
[2019-04-22 02:42] LABS: Hyaline Casts,Urine None Seen per lpf (None-Few); Renal Epithelial Cells,Urine Few per hpf (None-Few); Squamous Epithelial Cell,Urine Few per lpf (None-Few)
[2019-04-22 02:43] LABS: Bacteria,Urine Few per hpf (None-Few)
[2019-04-22 03:22] LABS: Hemoglobin 11.3 g/dL (11.5-15.4); Immature Granulocytes % 0.9 % (0-4); Lymphocytes # 1.7 K/mcL (0.6-4.6); Lymphocytes % 14.5 %; Mean Corpuscular HGB Conc 32.3 g/dL (31.6-35.5); Mean Corpuscular Hemoglobin 30.7 pg (28.0-33.3); Mean Corpuscular Volume 95.1 fL (83.0-100.0); Mean Platelet Volume 9.4 fL (9.4-12.4); Monocytes # 1.1 K/mcL (0.0-1.3); Monocytes % 9.5 %; Neutrophils # 8.8 K/mcL (1.6-8.9); Platelet Count 219 K/mcL (140-400); Red Blood Count 3.68 M/mcL (3.82-4.97); Segmented Neutrophils % 75.1 %; White Blood Count 11.7 K/mcL (4.3-11.1)
[2019-04-22 03:35] LABS: Albumin 2.9 g/dL (3.5-5.7); Calcium 8.6 mg/dL (8.6-10.3); Phosphorous 2.9 mg/dL (2.7-4.5); Potassium 4.2 mEq/L (3.5-5.1)
[2019-04-22 03:36] LABS: Complement C3 84 mg/dL (87-200)
[2019-04-22] MEDS: 0.9 % Sodium Chloride 1,000 ML IVC SCH ×2 (06:36→10:37)
[2019-04-22 08:28] VITALS: BP 110/65
--- NOTE | 2019-04-22 08:45 | Event Note ---
Date of Encounter: 04/22/19 Time of Encounter: 08:44 - Nephrology Event Note Nephrology Chart Update I reviewed the handoff from my colleague Dr. Meadows. The pt is well known to me and just missed her outpt appt on 04/20/19 with me for CKD mgt. Now that she is nearing her baseline of CKD stage IIIb-IV, I will politely sign-off, but please feel free to call or page me. I've asked my office team to schedule a hospital follow up appt with me in about 2 weeks or less with a BMP in about 1 week. Thank you.
--- NOTE | 2019-04-22 08:55 | Urology Progress Note ---
Date of Encounter: 04/22/19 Time of Encounter: 07:45 - Assessment and Plan (1) Acute renal insufficiency Current Visit: Yes Status: Acute (2) Atrophic kidney Current Visit: Yes Status: Chronic (3) Ureteral stone with hydronephrosis Current Visit: Yes Status: Acute Assessment and plan: Patient is a 73-year-old female who presents 2 days status post cystoscopy, left retrograde pyelogram and left ureteral stent placement. Vital signs are stable and afebrile. Renal function has significantly improved, and serum creatinine is 1.91. Reviewed patient's renal ultrasound was reassuring for resolution of left-sided hydronephrosis and redemonstrated right renal atrophy. Nephrology has signed off. Urine culture is negative. Repeat urine culture is pending, and patient has been placed on IV Levaquin. I will discuss with Dr. Pimentel when Delatorre catheter can be removed, and he will reevaluate patient this afternoon. Progress Note Subjective: feels better Narrative: POD #2. Patient seen and examined sitting upright in bed in no apparent distress. Patient denies fever, chills, flank pain. Delatorre catheter is indwelli ng and draining transparent, clearly urine into bedside bag. Objective Initial Vital Signs Temp Pulse Resp BP Pulse Ox 98.6 F 54 18 107/62 94 04/19/19 15:46 04/19/19 15:46 04/19/19 15:46 04/19/19 15:46 04/19/19 15:46 - General physical appearance Present: no distress, no pain - Respiratory Present: normal expansion, normal respiratory effort - Abdomen Present: soft, non tender. Absent: distended - Genitourinary Urine Appearance: Present: Clear - Integumentary Present: no rash, no abnormal pigmentation - Musculoskeletal Present: normal posture - Psychiatric Present: oriented to time, oriented to person, oriented to place, speech is normal, memory intact - Labs 04/22/19 02:56 04/22/19 02:56 Diabetes panel 04/22/19 Range/Units 02:56 Sodium 137 (136-145) mEq/L Potassium 4.2 (3.5-5.1) mEq/L Chloride 106 (98-107) mEq/L Carbon Dioxide 21 L (23-29) mEq/L BUN 42 H (8-23) mg/dL Creatinine 1.91 H (0.60-1.20) mg/dL Glucose 146 H (70-105) mg/dL Calcium 8.6 (8.6-10.3) mg/dL Albumin 2.9 L (3.5-5.7) g/dL Calcium panel 04/22/19 Range/Units 02:56 Calcium 8.6 (8.6-10.3) mg/dL Phosphorus 2.9 (2.7-4.5) mg/dL Albumin 2.9 L (3.5-5.7) g/dL Pituitary panel 04/22/19 Range/Units 02:56 Sodium 137 (136-145) mEq/L Potassium 4.2 (3.5-5.1) mEq/L Chloride 106 (98-107) mEq/L Carbon Dioxide 21 L (23-29) mEq/L BUN 42 H (8-23) mg/dL Creatinine 1.91 H (0.60-1.20) mg/dL Glucose 146 H (70-105) mg/dL Calcium 8.6 (8.6-10.3) mg/dL Adrenal panel 04/22/19 Range/Units 02:56 Sodium 137 (136-145) mEq/L Potassium 4.2 (3.5-5.1) mEq/L Chloride 106 (98-107) mEq/L Carbon Dioxide 21 L (23-29) mEq/L BUN 42 H (8-23) mg/dL Creatinine 1.91 H (0.60-1.20) mg/dL Glucose 146 H (70-105) mg/dL Calcium 8.6 (8.6-10.3) mg/dL Albumin 2.9 L (3.5-5.7) g/dL - Imaging Additional Studies: Retroperitoneal ultrasound reviewed. Consult Discharge Plan - Plan Referrals: Natasha Samuel, EMBOSSER OPERATOR [Primary Care Provider] -
--- NOTE | 2019-04-22 09:53 | Discharge Summary ---
Orders not resulted at time of discharge: Pending orders 04/22/19 00:13 Culture,Urine [RM] Routine Immunofixation,Urine (BJP) Routine 04/22/19 02:56 VIN IgG IGNACIA rflx IFA AM 0400 Immunoelectrophoresis AM 0400 Date of Encounter: 04/22/19 Time of Encounter: 07:45 - Discharge Diagnosis (1) Acute renal insufficiency Priority: Primary Status: Acute (2) Atrophic kidney Priority: Secondary Status: Chronic (3) Ureteral stone with hydronephrosis Priority: Primary Status: Acute - Hospital Course Hospital course: Ms. Driver is a 73 year old female who presents with a history of a left ureteral stone with hydronephrosis and urinary tract infection. On 04/20/2019, patient was taken to the operating room where she underwent a cystoscopy, left retrograde pyelogram and left ureteral stent placement. There were no surgical complications, and the patient tolerated the procedure well. Postoperative course was relatively unremarkable, despite an elevation in patient's serum creatinine postoperatively. Patient underwent a reassuring renal ultrasound, and nephrology was consulted. Patient is aware she will require a routine follow-up as an outpatient with nephrology. Patient is also aware she will require a staged stone extraction procedure. Postoperative expectations, restrictions, activity and follow-up were discussed with patient, and patient verbalized understanding. Time spent discussing smoking cessation with patient: 3 to 10 minutes - Time Spent with Patient Total time spent providing and/or coordinating discharge services: Less than 30 minutes Procedures and tests throughout hospitalization: Cystoscopy, left retrograde pyelogram, left ureteral stent placement Retroperitoneal ultrasound Labs on day of discharge: Labs from last 24 hours 04/22/19 04/22/19 04/22/19 02:56 02:56 02:56 WBC 11.7 H RBC 3.68 L Hgb 11.3 L Hct 35.0 L MCV 95.1 MCH 30.7 MCHC 32.3 RDW 13.0 Plt Count 219 MPV 9.4 Immature Gran % 0.9 Seg Neutrophils % 75.1 Lymphocytes % 14.5 Monocytes % 9.5 Eosinophils % 0.0 Basophils % 0.0 Neutrophils # 8.8 Lymphocytes # 1.7 Monocytes # 1.1 Eosinophils # 0.0 Basophils # 0.0 Sodium 137 Potassium 4.2 Chloride 106 Carbon Dioxide 21 L BUN 42 H Creatinine 1.91 H Est GFR ( Amer) 31 L Est GFR (Non-Af Amer) 26 L BUN/Creatinine Ratio 22 Glucose 146 H Calculated Osmolality 297 Calcium 8.6 Phosphorus 2.9 Albumin 2.9 L Urine Color Urine Clarity Urine pH Ur Specific [place] Urine Protein Urine Glucose (UA) Urine Ketones Urine Blood Urine Nitrite Urine Bilirubin Urine Urobilinogen Ur Leukocyte Esterase Urine Microscopic RBC Urine Microscopic WBC Ur Eosinophil Smear Ur Squamous Epith Cells Ur Renal Epithelial Cell Urine Bacteria Hyaline Casts Ur Culture Indicated? Urine Creatinine Urine Microalbumin Microalb/Creat Ratio Protein/Creatinin Ratio Urine Sodium Urine Total Protein Complement C3 84 L Complement C4 21 04/22/19 04/22/19 04/22/19 00:13 00:13 00:13 WBC RBC Hgb Hct MCV MCH MCHC RDW Plt Count MPV Immature Gran % Seg Neutrophils % Lymphocytes % Monocytes % Eosinophils % Basophils % Neutrophils # Lymphocytes # Monocytes # Eosinophils # Basophils # Sodium Potassium Chloride Carbon Dioxide BUN Creatinine Est GFR ( Amer) Est GFR (Non-Af Amer) BUN/Creatinine Ratio Glucose Calculated Osmolality Calcium Phosphorus Albumin Urine Color Yellow Urine Clarity Cloudy A Urine pH 6.0 Ur Specific M[place] < 1.005 L Urine Protein 30 H Urine Glucose (UA) Normal Urine Ketones Negative Urine Blood Large H Urine Nitrite Negative Urine Bilirubin Negative Urine Urobilinogen Normal Ur Leukocyte Esterase Large H Urine Microscopic RBC 0-3 Urine Microscopic WBC 5-15 H Ur Eosinophil Smear 0 Ur Squamous Epith Cells Few Ur Renal Epithelial Cell Few Urine Bacteria Few Hyaline Casts None Seen Ur Culture Indicated? YES A Urine Creatinine 24 24 Urine Microalbumin 101 Microalb/Creat Ratio 421 H Protein/Creatinin Ratio 1.75 H Urine Sodium 24.4 Urine Total Protein 42 H Complement C3 Complement C4 Preliminary micro results at discharge 04/22/19 00:13 Urine Culture - Preliminary Urine,Clean Catch Culture is incubating. - Impressions ITS Impressions KUB X-Ray 04/19/19 15:53 IMPRESSION: Left proximal ureteral calculus is likely unchanged. D/ / 04/19/2019 17:58:18 Rodríguez Donovan MD / vivien Interpreting Provider: Rodríguez Donovan MD Retrograde Pyelogram 04/20/19 16:55 IMPRESSION: Intraprocedural fluoroscopic spot images as above. See separate procedure report for more information. D/ / 04/20/2019 17:36:12 Myron Caballero MD / ame Interpreting Provider: Myron Caballero MD Retroperitoneum Ultrasound 04/21/19 19:00 IMPRESSION: 1. Mild fullness of the right renal collecting system. 2. Atrophic right kidney with a nonobstructing intrarenal stone. 3. No left-sided hydronephrosis. D/ / Fritz White MD / Frtiz White MD Interpreting Provider: Fritz White MD - Discharge Medications Prescriptions: New levoFLOXacin [Levaquin] 250 mg PO DAILY #10 tablet Continued traZODone [TraZODone] 50 mg PO HS Escitalopram [Lexapro] 10 mg PO DAILY Cetirizine HCl [24Hour Allergy] 10 mg PO DAILY PRN PRN Reason: Allergy Symptoms Omeprazole [PriLOSEC] 20 mg PO DAILY Acetaminophen [Tylenol] 1,000 mg PO Q6HR PRN PRN Reason: Pain Propranolol [Inderal] 10 mg PO BID Cholecalciferol (Vitamin D3) [Vitamin D3] 5,000 unit PO DAILY Furosemide [Lasix] 40 mg PO DAILY Home Medications: Acetaminophen [Tylenol] 1,000 mg PO Q6HR PRN 04/19/19 [History] Cetirizine HCl [24Hour Allergy] 10 mg PO DAILY PRN 04/19/19 [History] Escitalopram [Lexapro] 10 mg PO DAILY 04/19/19 [History] Omeprazole [PriLOSEC] 20 mg PO DAILY 04/19/19 [History] Propranolol [Inderal] 10 mg PO BID 04/19/19 [History] traZODone [TraZODone] 50 mg PO HS 04/19/19 [History] Cholecalciferol (Vitamin D3) [Vitamin D3] 5,000 unit PO DAILY 04/20/19 [History] Furosemide [Lasix] 40 mg PO DAILY 04/20/19 [History] levoFLOXacin [Levaquin] 250 mg PO DAILY #10 tablet 04/22/19 [Rx] Allergies/Adverse Reactions: Allergy/AdvReac Type Severity Reaction Status Date / Time acetaminophen Allergy Intermediate Gastrointestinal Verified 04/20/19 07:44 [From Excedrin Extra Upset Strength] aspirin Allergy Intermediate Gastrointestinal Verified 04/20/19 07:44 [From Excedrin Extra Upset Strength] caffeine Allergy Intermediate Gastrointestinal Verified 04/20/19 07:44 [From Excedrin Extra Upset Strength] ondansetron [From Zofran] Allergy Intermediate Itching Verified 04/20/19 07:44 Date of admission: 04/21/19 09:13 Primary care physician: Natasha Samuel CNP Consults: 04/20/19 23:47 Consult to Nephrology [CONS] Routine Consulting Provider: [facility]/MARIANA/ASHLI/SRINI Reason for Consult: CKD; atrophic right kidney; left kidney stone with obstruction; needs follow up. Call Completed: Yes Discharging clinician: Ignacia Mayer Anticipated date of discharge: 04/22/19 Exam Initial Vital Signs Temp Pulse Resp BP Pulse Ox 98.6 F 54 18 107/62 94 04/19/19 15:46 04/19/19 15:46 04/19/19 15:46 04/19/19 15:46 04/19/19 15:46 - General physical appearance Present: well developed, no distress, no pain - Eyes Present: PERRL, normal ocular movement - ENT Present: no congestion, decreased hearing - Neck Present: no masses, trachea midline - Respiratory Present: normal respiratory effort - Cardiovascular Cardiovascular exam IM: RRR - Abdomen Abdomen: Present: soft, non tender. Absent: distended - Genitourinary Present: other (Urine is transparent, clear yellow) - Integumentary Present: no rash, no abnormal pigmentation - Neurologic Present: normal coordination - Musculoskeletal Present: other (Normal posture) - Patient Status Disposition: Home, Self-Care Condition: Good Functional capacity at discharge: independent ambulation Overall status at discharge: patient is progressing back to baseline - Discharge Instructions Follow Up With: Natasha Samuel CNP [Primary Care Provider] - Caleb Pimentel MD [Partnered Physician] - Additional Instructions: Call if fever greater than 101 degrees. May expect blood in the urine. May experience irritating voiding symptoms such as burning, urgency, frequency, hesitancy. May use AZO over the counter. May use Colace stool softener over the counter. Ok to shower. Ok to drive as long as you are no longer taking narcotic pain medication. Ok to return to normal activity as tolerated. [facility] will contact you for outpatient follow-up appointment within 1-2 weeks. - Diet and Activity Activity: increase activity as tolerated Diet: advance to your usual diet
[2019-04-24 10:21] LABS: ANA IgG by ELISA NONE DETECTED (None Detected)
[2019-04-24 14:42] LABS: Alpha 2 Globulin (PEP) 0.85 g/dL (0.48-1.05); Beta Globulin (PEP) 0.72 g/dL (0.48-1.10)
[2019-04-25 10:35] LABS: IFE Reflexed NOT DONE
== END 2019-04-22 13:00 | disposition home or self-care (01) | DRG 661 ==
LOC: 3ANU
PROVIDERS: ADMIT Urology; ATTEND Urology

== ENCOUNTER 2022-01-18 05:50 | Inpatient (IN) ==
[2022-01-18] MEDS ORDERED: Ondansetron 4 MG/2 ML VIAL IVP PRN (13:39)
[2022-01-18] MEDS ORDERED: Naloxone 0.4 MG/ML INJ IVP PRN (13:39)
[2022-01-18] MEDS ORDERED: *HR* OxyCODONE Immed Rel 5 MG TABLET PO PRN (13:39)
[2022-01-18] MEDS ORDERED: Acetaminophen 325 MG TABLET PO PRN (13:39)
[2022-01-18 14:19] LABS: Basophils % 0.2 %; Hematocrit 33.4 % (35.3-44.9); Hemoglobin 9.8 g/dL (11.5-15.4); Immature Granulocytes % 1.2 % (0-4); Lymphocytes # 1.3 K/mcL (0.6-4.6); Lymphocytes % 6.4 %; Mean Corpuscular HGB Conc 29.3 g/dL (31.6-35.5); Mean Corpuscular Hemoglobin 22.6 pg (28.0-33.3); Mean Platelet Volume 8.5 fL (9.4-12.4); Monocytes # 1.8 K/mcL (0.0-1.3); Neutrophils # 16.3 K/mcL (1.6-8.9); Platelet Count 285 K/mcL (140-400); Red Blood Count 4.34 M/mcL (3.82-4.97); Red Cell Distribution Width 16.3 % (11.5-14.5); Segmented Neutrophils % 83.2 %
[2022-01-18 14:21] LABS: White Blood Count 19.6 K/mcL (4.3-11.1)
[2022-01-18 14:26] LABS: Prothrombin Time 11.5 Seconds (9.4-12.1)
[2022-01-18 14:28] LABS: Activated Partial Thrombo Time 23.8 Seconds (26.0-36.0)
[2022-01-18] MEDS ORDERED: Perflutren Lipid Microsphere 1.3 ML in 0.9 % Sodium Chloride 8.7 ML IVP PRN (14:33)
[2022-01-18 14:37] LABS: Phosphorous 2.2 mg/dL (2.7-4.5); Potassium 4.3 mEq/L (3.5-5.1)
[2022-01-18] MEDS ORDERED: Ipratropium/Albuterol Neb 3 ML IH PRN (14:44)
[2022-01-18] MEDS: cefTRIAXone 1,000 MG in Water for inj. (sterile) 10 ML IVP SCH (15:33)
[2022-01-18] MEDS: 0.9 % Sodium Chloride 1,000 ML IVC SCH (15:33)
[2022-01-18] MEDS: *HR* Heparin 5,000 UNIT/ML VIAL SQ SCH (21:54)
[2022-01-19 01:49] LABS: Basophils % 0.2 %; Eosinophils % 0.1 %; Hematocrit 29.7 % (35.3-44.9); Hemoglobin 8.7 g/dL (11.5-15.4); Immature Granulocytes % 1.2 % (0-4); Lymphocytes # 2.9 K/mcL (0.6-4.6); Lymphocytes % 13.9 %; Mean Corpuscular HGB Conc 29.3 g/dL (31.6-35.5); Mean Corpuscular Hemoglobin 22.4 pg (28.0-33.3); Mean Corpuscular Volume 76.3 fL (83.0-100.0); Mean Platelet Volume 8.7 fL (9.4-12.4); Neutrophils # 15.3 K/mcL (1.6-8.9); Platelet Count 267 K/mcL (140-400); Red Blood Count 3.89 M/mcL (3.82-4.97); Red Cell Distribution Width 16.5 % (11.5-14.5); Segmented Neutrophils % 74.6 %; White Blood Count 20.5 K/mcL (4.3-11.1)
[2022-01-19 01:59] LABS: Calcium 8.7 mg/dL (8.6-10.3); Potassium 3.7 mEq/L (3.5-5.1)
[2022-01-19] MEDS: 0.9 % Sodium Chloride 1,000 ML IVC SCH (02:59)
[2022-01-19] MEDS: *HR* Heparin 5,000 UNIT/ML VIAL SQ SCH ×3 (05:09→22:15)
[2022-01-19] MEDS ORDERED: Ondansetron 4 MG/2 ML VIAL IVP PRN ×2 (07:08→09:36)
[2022-01-19] MEDS ORDERED: *HR* OxyCODONE Immed Rel 5 MG TABLET PO PRN ×2 (07:08→09:36)
[2022-01-19] MEDS ORDERED: *HR* Meperidine 25 MG/ML SYRINGE IVP PRN (07:08)
[2022-01-19] MEDS ORDERED: *HR* Labetalol 20 MG/4 ML SYRINGE IVP PRN (07:08)
[2022-01-19] MEDS ORDERED: Albuterol 2.5 MG/3 ML NEBULIZER IH PRN (07:08)
[2022-01-19] MEDS ORDERED: Ipratropium Neb 0.5 MG NEBULIZER IH PRN (07:08)
[2022-01-19] MEDS ORDERED: *HR* HYDROmorphone PF 0.5 MG/0.5 ML SYRINGE IVP PRN (07:08)
[2022-01-19] MEDS ORDERED: Isovue-300 50ML VIAL ONE (07:14)
[2022-01-19] MEDS ORDERED: *HR* FentaNYL (PF) 100 MCG/2 ML VIAL ONE (07:37)
[2022-01-19] MEDS ORDERED: *HR* Succinylcholine 200 MG/10 ML VIAL IVP ONE (07:37)
[2022-01-19] MEDS ORDERED: Ondansetron 4 MG/2 ML VIAL ONE (07:37)
[2022-01-19] MEDS ORDERED: Lidocaine -MPF 2% 5 ML VIAL ONE (07:37)
[2022-01-19] MEDS ORDERED: *HR* Propofol 200 MG/20 ML VIAL IVP ONE (07:37)
[2022-01-19] MEDS: cefTRIAXone 1,000 MG in Water for inj. (sterile) 10 ML IVP SCH (07:55)
[2022-01-19] MEDS ORDERED: cefTRIAXone 1,000 MG in 0.9 % Sodium Chloride 10 ML IVP SCH (09:00)
[2022-01-19] MEDS ORDERED: Acetaminophen 325 MG TABLET PO PRN (09:36)
[2022-01-19] MEDS ORDERED: Naloxone 0.4 MG/ML INJ IVP PRN (09:36)
[2022-01-19] MEDS ORDERED: Ipratropium/Albuterol Neb 3 ML IH PRN (09:36)
[2022-01-19] MEDS ORDERED: 0.9 % Sodium Chloride 1,000 ML IVC SCH ×2 (09:36→16:15)
[2022-01-20] MEDS: *HR* Heparin 5,000 UNIT/ML VIAL SQ SCH ×3 (05:16→21:21)
[2022-01-20 05:30] LABS: Basophils % 0.1 %; Hematocrit 28.9 % (35.3-44.9); Hemoglobin 8.6 g/dL (11.5-15.4); Immature Granulocytes % 1.7 % (0-4); Lymphocytes % 7.1 %; Mean Corpuscular HGB Conc 29.8 g/dL (31.6-35.5); Mean Corpuscular Hemoglobin 22.9 pg (28.0-33.3); Mean Corpuscular Volume 76.9 fL (83.0-100.0); Monocytes # 0.9 K/mcL (0.0-1.3); Monocytes % 6.3 %; Platelet Count 274 K/mcL (140-400); Red Blood Count 3.76 M/mcL (3.82-4.97); Red Cell Distribution Width 16.6 % (11.5-14.5); Segmented Neutrophils % 84.8 %; White Blood Count 14.1 K/mcL (4.3-11.1)
[2022-01-20 05:53] LABS: Calcium 9.2 mg/dL (8.6-10.3)
[2022-01-20] MEDS: cefTRIAXone 1,000 MG in 0.9 % Sodium Chloride 10 ML IVP SCH (08:27)
[2022-01-20 17:31] LABS: Bilirubin,Urine Negative (Negative); Blood,Urine Large (Negative); Clarity,Urine Turbid (Clear); Color,Urine Light-Yellow (Yellow); Glucose,Urine (UA) Normal (Normal); Hyaline Casts,Urine Few per lpf (None Seen); Ketones,Urine Negative (Negative); Leukocyte Esterase,Urine Large (Negative); Nitrite,Urine Negative (Negative); PH,Urine 6.5 pH Units (5.0-8.0); Protein,Urine 100 mg/dL (Neg-Trace); RBC,Urine TNTC per hpf (0-3); Specific Gravity,Urine 1.016 (1.010-1.025); Urobilinogen,Urine Normal (Normal); WBC,Urine TNTC per hpf (0-3)
[2022-01-21] MEDS: *HR* Heparin 5,000 UNIT/ML VIAL SQ SCH ×3 (04:24→20:39)
[2022-01-21 05:32] LABS: Basophils % 0.1 %; Hemoglobin 8.5 g/dL (11.5-15.4); Immature Granulocytes % 1.2 % (0-4); Lymphocytes % 14.4 %; Mean Corpuscular HGB Conc 29.3 g/dL (31.6-35.5); Mean Corpuscular Hemoglobin 22.3 pg (28.0-33.3); Mean Corpuscular Volume 75.9 fL (83.0-100.0); Monocytes # 1.2 K/mcL (0.0-1.3); Monocytes % 8.4 %; Neutrophils # 10.7 K/mcL (1.6-8.9); Nucleated Red Blood Cells 0.1 /100 WBC (0); Platelet Count 313 K/mcL (140-400); Red Blood Count 3.82 M/mcL (3.82-4.97); Red Cell Distribution Width 16.6 % (11.5-14.5); Segmented Neutrophils % 75.9 %; White Blood Count 14.1 K/mcL (4.3-11.1)
[2022-01-21 05:53] LABS: Calcium 9.1 mg/dL (8.6-10.3); Potassium 4.3 mEq/L (3.5-5.1)
[2022-01-21] MEDS: cefTRIAXone 1,000 MG in 0.9 % Sodium Chloride 10 ML IVP SCH (09:37)
[2022-01-22] MEDS: *HR* Heparin 5,000 UNIT/ML VIAL SQ SCH (04:38)
[2022-01-22 10:49] VITALS: BP 111/56; PULSE 63; TEMP 98.4; O2SAT 97
[2022-01-22] MEDS: cefTRIAXone 1,000 MG in 0.9 % Sodium Chloride 10 ML IVP SCH (11:50)
[2022-01-22] MEDS ORDERED: cefTRIAXone 1,000 MG in 0.9 % Sodium Chloride 10 ML IVP SCH (12:00)
== END 2022-01-22 13:04 | disposition home or self-care (01) | DRG 854 ==
LOC: 3ANU
PROVIDERS: ADMIT Student in an Organized Health Care Education/Training Program; ATTEND Student in an Organized Health Care Education/Training Program